=== PATIENT | male | born 1960 | race Caucasian/White ===

== ENCOUNTER → 2025-05-15 10:14 | Outpatient (REF) | payer BC, SELFPAY | LOC: HWRCS 10:14 | PROVIDERS: ATTENDING PHYSICIAN Internal Medicine Cardiovascular Disease; FAMILY PHYSICIAN Family Medicine | DX: I49.3 Ventricular premature depolarization (principal) | CPT/HCPCS: 93306 ==

== ENCOUNTER → 2025-05-19 12:36 | Outpatient (REF) | payer BC, SELFPAY | LOC: RCS 12:36 | PROVIDERS: ATTENDING PHYSICIAN Internal Medicine Cardiovascular Disease; FAMILY PHYSICIAN Family Medicine | DX: I49.3 Ventricular premature depolarization (principal) | CPT/HCPCS: 93017; 93350 ==